=== PATIENT | female | born 1985 | race Caucasian/White ===

== ENCOUNTER 2017-05-30 13:27 | Emergency (ER) | payer OTHER ==
[~2017-05-30] VITALS: Ht 165.1 cm; Wt 54.4 kg
[2017-05-30 13:35] VITALS: BP 136/73
[2017-05-30] MEDS ORDERED: DIPHTH,PERTUSS(ACELL),TET TOX 0.5 ML DISP.SYRIN. VAX IM ONE (14:00)
--- NOTE | 2017-05-30 14:02 | PHYS DOC ---
Past Medical History Past Medical History: No Pertinent History Past Surgical History: No Surgical History Alcohol Use: Occasionally Drug Use: None Adult General Chief Complaint Chief Complaint: ANIMAL BITE HPI HPI Patient is a 31 year old female presents emergency department stating that her in her right posterior upper leg. She states that she went to Dr. [place] in which one of the dogs bit. Patient states the dog's immunizations are up-to- date. She states that her tetanus is not up-to-date. She has 2 puncture wounds noted on the posterior part of her right thigh in which the bleeding is currently controlled. She does have bruising noted around the area. Patient is able to ambulate without difficulty. Patient does present with an ice pack in place. Review of Systems Review of Systems Constitutional: Denies fever or chills [] Eyes: Denies change in visual acuity, redness, or eye pain [] HENT: Denies nasal congestion or sore throat [] Respiratory: Denies cough or shortness of breath [] Cardiovascular: No additional information not addressed in HPI [] GI: Denies abdominal pain, nausea, vomiting, bloody stools or diarrhea [] : Denies dysuria or hematuria [] Musculoskeletal: Denies back pain or joint pain [] Integument: Denies rash or skin lesions. Patient with 2 puncture wounds noted to the posterior right thigh Neurologic: Denies headache, focal weakness or sensory changes [] Endocrine: Denies polyuria or polydipsia [] Current Medications Current Medications Current Medications Medications (Trade) Dose Ordered Sig/Olegario Start Time Stop Time Status Last Admin Dose Admin Diphtheria/ Tetanus/Acell Pertussis (Boostrix) 0.5 ml ONCE ONCE 05/30/17 14:00 05/30/17 14:01 DC 05/30/17 14:43 0.5 ML Allergies Allergies Allergies Coded Allergies Type Severity Reaction Last Updated Verified No Known Drug Allergies 05/30/17 No Physical Exam Physical Exam Constitutional: Well developed, well nourished, no acute distress, non-toxic appearance. [] HENT: Normocephalic, atraumatic, bilateral external ears normal, oropharynx moist, no oral exudates, nose normal. [] Eyes: PERRLA, EOMI, conjunctiva normal, no discharge. [] Neck: Normal range of motion, no tenderness, supple, no stridor. [] Cardiovascular:Heart rate regular rhythm Lungs & Thorax: No respiratory distress noted Skin: Warm, dry, no erythema, no rash. Patient with 2 puncture wounds noted to the right posterior thigh with approximately 0.25 cm open wounds. No foreign body noted patient does have bruising around each one of the areas. No bleeding currently noted at this time. Back: No tenderness Extremities: No tenderness, no cyanosis, no clubbing, ROM intact, no edema. Peripheral pulses 2+ cap refill brisk less than 2 seconds. Neurologic: Alert and oriented X 3, normal motor function, normal sensory function, no focal deficits noted. [] Psychologic: Affect normal, judgement normal, mood normal. [] Current Patient Data Vital Signs Vital Signs Date Time Temp Pulse Resp B/P (MAP) Pulse Ox O2 Delivery O2 Flow Rate FiO2 05/30/17 13:35 98.1 76 16 98 Room Air 98.1 EKG EKG [] Radiology/Procedures Radiology/Procedures [][facility] [address] [place], [place] IMAGING REPORT Signed PATIENT: ELDER KERR ACCOUNT: [id number] : 1985 LOCATION: ER AGE: 31 SEX: F EXAM STATUS: REG ER ORD. PHYSICIAN: ANABELLE SKELTON APRN REASON: dog bite to the right posterior leg. PROCEDURE: RIGHT FEMUR XRAY Right femur, 2 views, 05/30/2017: History: Dog bite No fracture or bony abnormality is detected. No radiopaque foreign body is evident in the soft tissues. IMPRESSION: No significant right femoral abnormality is detected. DICTATED and SIGNED BY: ANTHONY MAY MD DATE: 05/30/17 1440 CC: ANABELLE SKELTON APRN; BOUBACAR PULIDO MD ~ Course & Med Decision Making Course & Med Decision Making Pertinent Labs and Imaging studies reviewed. (See chart for details) X-rays were negative for any foreign bodies. Site was irrigated with normal saline and soap. Patient was instructed to use ice packs on 20 minutes off 20 minutes several times a day. She will be provided with a prescription for Augmentin which she can take to prevent infection. She was instructed to monitor the site for any redness warmth tenderness or any yellow/greenish transient become from the site physician occur she'll need to follow-up with her primary care physician immediately. She was updated with her tetanus immunization today. She has declined rabies vaccination at this time. Signs and symptoms to return back to emergency department as been provided. [] Dragon Disclaimer Dragon Disclaimer This electronic medical record was generated, in whole or in part, using a voice recognition dictation system. Departure Departure Impression: Primary Impression: Animal bite Disposition: HOME, SELF-CARE Condition: STABLE Patient Instructions: Animal Bite, [id number] Additional Instructions: Keep the area clean and dry. Clean the site with soap and water twice a day and apply antibiotic ointment to the area. Antibiotics as prescribed. Tylenol or ibuprofen for pain and discomfort. Ice packs on 20 minutes off 20 minutes several times a day. Follow-up to primary care physician in the next 3-5 days. Return back to emergency prior signs symptoms of become worse. Scripts Amoxicillin/Potassium Clav (AUGMENTIN 875-125 TABLET) 1 Each Tablet 1 TAB PO BID, #20 TAB Prov: ANABELLE SKELTON APRN 05/30/17 ANABELLE SKELTON APRN May 30, 2017 14:02
--- NOTE | 2017-05-30 14:44 | RAD ---
Right femur, 2 views, 05/30/2017: History: Dog bite No fracture or bony abnormality is detected. No radiopaque foreign body is evident in the soft tissues. IMPRESSION: No significant right femoral abnormality is detected.
[2017-05-30] MEDS ORDERED: AMOX1TAB61 PO (14:51)
== END 2017-05-30 15:03 | disposition home or self-care (01) ==
LOC: ER 13:27
DX: S71.131A Puncture wound without foreign body, right thigh, initial encounter (principal); W54.0XXA Bitten by dog, initial encounter; Y93.89 Activity, other specified; Y92.89 Other specified places as the place of occurrence of the external cause; Y99.8 Other external cause status
CPT/HCPCS: 73552; 90471; 90715; 99284-25